=== PATIENT | female | born 2005 | race Caucasian/White ===

== ENCOUNTER 2025-08-18 11:39 | Emergency (ER) | payer SELFPAY ==
[2025-08-18] VITALS (17 sets, daily range): BP systolic 103–118; BP diastolic 63–78; PULSE 71–88; TEMP 36.6; O2SAT 97–100; BMI 22.3
--- NOTE | 2025-08-18 11:42 | ECG_ITS ---
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 Measurements Intervals [place] Rate: 71 P: 64 WI: 128 QRS: 80 QRSD: 82 T: 67 QT: 388 QTc: 411 Interpretive Statements 1100 Sinus rhythm 9110 normal ECG Compared to ECG 01/18/2020 20:27:40 No significant changes Electronically Signed On 08-18-2025 17:35:35 EDT by SASHA HUERTA M.D.
--- NOTE | 2025-08-18 11:42 | ED_ITS ---
HPI HPI - General Adult General Stated complaint: FAINTING Time Seen by Provider: 08/18/25 11:42 History of Present Illness HPI narrative: 20-year-old female presented because she passed out. She was standing in line to get coffee and felt dizzy and lightheaded. She went down to the floor but did not injure herself in any way. She sensed it coming on before she passed out. She states she is currently on her period and it is heavier than typical. No fever vomiting or abdominal pain or chest pain. This happened just before coming into the emergency department and she was transported here by paramedics. Related Data Allergies Allergy/AdvReac Type Severity Reaction Status Date / Time amoxicillin (From Augmentin) Allergy Intermediate Hives Verified 08/18/25 13:04 clavulanic acid (From Allergy Intermediate Hives Verified 08/18/25 13:04 Augmentin) Review of Systems ROS Narrative A ten point review of systems is negative except as noted above. Exam Narrative Exam Narrative: Nurses note and vital signs reviewed and patient is not hypoxic. General:The patient appears well and in no apparent distress.Patient is resting comfortably on cart. Skin:Warm, dry, mild pallor noted.There is no rash noted. Head:Normocephalic, atraumatic Eye: Normal conjunctiva, no drainage Ears, Nose, Mouth, and Throat: oral mucosa is moist. Nares patent. Cardiovascular:Regular Rate and Rhythm Respiratory:Patient is in no distress, no accessory muscle use, lungs are clear to auscultation, no wheezing, rales or rhonchi Back:non-tender GI: Soft and nontender Musculoskeletal: The patient has no evidence of calf tenderness, no pitting edema, symmetrical pulses noted bilaterally Neurological:A&O x4, normal speech Psychiatric:Cooperative Medical Decision Making MDM Narrative Medical decision making narrative: Her workup is negative. She is not anemic or . She was given IV fluids and had no dysrhythmias. She is feeling much better now and is discharged home. Findings are discussed with the patient and her family. Differential Diagnosis Differential Diagnosis: Syncope, anemia, , hypoglycemia Lab Data Lab results reviewed: Yes I reviewed the patient's lab results Labs: Lab Results 08/18/25 08/18/25 Range/Units 11:39 12:06 WBC 5.3 (4.0-11.0) 10^3/uL RBC 4.06 L (4.20-5.40) 10^6/uL Hgb 13.1 (12.0-16.0) g/dL Hct 37.9 (36.0-48.0) % MCV 93.3 (81.0-99.0) fL MCH 32.3 (26.7-34.0) pg MCHC 34.6 (29.9-35.2) g/dL RDW 12.5 (11.0-15.0) % Plt Count 198 (150-450) 10^3/uL MPV 9.6 (9.5-13.5) fL Neut % (Auto) 64.2 (43.0-75.0) % Lymph % (Auto) 23.1 (20.5-60.0) % [place] % (Auto) 9.0 (1.7-12.0) % Eos % (Auto) 2.1 (0.9-7.0) % Baso % (Auto) 0.8 (0.2-2.0) % Neut # (Auto) 3.4 (1.4-6.5) 10^3/uL Lymph # (Auto) 1.2 (1.2-3.8) 10^3/uL [place] # (Auto) 0.5 (0.3-0.8) 10^3/uL Eos # (Auto) 0.1 (0.0-0.7) 10^3/uL Baso # (Auto) 0.0 (0.0-0.1) 10^3/uL Abs Immat Gran (auto) 0.04 H (0.00-0.03) 10^3/uL Imm/Tot Granulo (auto) 0.8 H (0.0-0.5) % Sodium 141 (136-145) mmol/L Potassium 3.4 L (3.5-5.1) mmol/L Chloride 107 (98-107) mmol/L Carbon Dioxide 23.5 (21.0-32.0) mmol/L Anion Gap 13.9 BUN 8.0 (7.0-18.0) mg/dL Creatinine 0.60 (0.55-1.02) mg/dL Est GFR ( Amer) >60 (>=60 mL/min/1.73m^2) Est GFR (Non-Af Amer) >60 (>=60 mL/min/1.73m^2) BUN/Creatinine Ratio 13.3 Glucose 100 (74-106) mg/dL Calcium 8.6 (8.5-10.1) mg/dL Serum HCG, Qual Negative (NEGATIVE) ECG Data Attestation: I personally reviewed and interpreted this ECG as follows: (EKG on my interpretation shows normal sinus rhythm with rate of 71 and no acute change.) Discharge Plan Discharge Clinical Impression: Syncope Patient Disposition: Home, Self-Care Time of Disposition Decision: 12:59 Condition: Good Mode of Transportation: Private Vehicle Print Language: Uzbek Instructions: Syncope (ED) Referrals: Physician,Non-Staff, MD [Primary Care Provider] - 1 week
[2025-08-18 12:12] LABS: Hematocrit 37.9 % (36.0-48.0); Hemoglobin 13.1 g/dL (12.0-16.0); Immature Granulocytes Abs Auto 0.04 10^3/uL (0.00-0.03); Immature Granulocytes Pct Auto 0.8 % (0.0-0.5); Lymphocytes Absolute Auto 1.2 10^3/uL (1.2-3.8); Mean Corpuscular HGB Conc 34.6 g/dL (29.9-35.2); Mean Corpuscular Hemoglobin 32.3 pg (26.7-34.0); Mean Corpuscular Volume 93.3 fL (81.0-99.0); Platelet Count 198 10^3/uL (150-450); Red Blood Count 4.06 10^6/uL (4.20-5.40); White Blood Count 5.3 10^3/uL (4.0-11.0)
[2025-08-18 12:26] LABS: Anion Gap 13.9; Blood Urea Nitrogen 8.0 mg/dL (7.0-18.0); Calcium 8.6 mg/dL (8.5-10.1); Carbon Dioxide 23.5 mmol/L (21.0-32.0); Chloride 107 mmol/L (98-107); Estimated GFR (African America >60 (>=60 mL/min/1.73m^2); Estimated GFR (Non-African Ame >60 (>=60 mL/min/1.73m^2); Glucose 100 mg/dL (74-106); Potassium 3.4 mmol/L (3.5-5.1); Sodium 141 mmol/L (136-145)
[2025-08-18] MEDS: 0.9 % SODIUM CHLORIDE 1,000 ML 1000 ML IV (12:36)
== END 2025-08-18 13:55 | disposition home or self-care (01) ==
PROVIDERS: Emergency Provider Emergency Medicine
DX: R55 Syncope and collapse (principal)
CPT/HCPCS: 36415; 80048; 84703; 85025; 93005; 96360; 99284